=== PATIENT | female | born 1985 | race Caucasian/White ===

== ENCOUNTER 2018-07-27 18:58 | Observation (INO) ==
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
[2018-07-27 19:47] LABS: Bilirubin,Urine Small (Negative); Blood,Urine Trace (Negative); Clarity,Urine Cloudy (Clear); Color,Urine Dark Yellow (Yellow); Glucose,Urine (UA) Normal (Normal); Ketones,Urine 80 mg/dL (Negative); Leukocyte Esterase,Urine Negative (Negative); Nitrite,Urine Negative (Negative); Protein,Urine 30 mg/dL (Neg-Trace); Urobilinogen,Urine Normal (Normal)
[2018-07-27 19:49] LABS: Bacteria,Urine Few per hpf (None-Few); Squamous Epithelial Cell,Urine Many per lpf (None-Few)
[2018-07-27 20:05] LABS: Amphetamine Screen,Urine Negative ng/mL (Cutoff=1000); Barbiturate Screen,Urine Negative ng/mL (Cutoff=200); Benzodiazepines Screen,Urine Positive ng/mL (Cutoff=200); Cannabinoid Screen,Urine Positive ng/mL (Cutoff = 50); Cocaine Screen,Urine Negative ng/mL (Cutoff= 300); Opiate Screen,Urine Negative ng/mL (Cutoff=300); Phencyclidine Screen,Urine Negative ng/mL (Cutoff=25)
[2018-07-27 20:09] LABS: Hyaline Casts,Urine None Seen per lpf (None-Few); Mucus,Urine Moderate (Few)
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
[2018-07-27 20:17] LABS: Basophils # 0.1 K/mcL (0.0-0.2); Basophils % 0.8 %; Eosinophils # 0.3 K/mcL (0.0-0.6); Eosinophils % 2.7 %; Hematocrit 42.1 % (35.3-44.9); Hemoglobin 14.6 g/dL (11.5-15.4); Immature Granulocytes % 0.2 % (0-4); Lymphocytes % 29.8 %; Mean Corpuscular HGB Conc 34.7 g/dL (31.6-35.5); Mean Platelet Volume 9.9 fL (9.4-12.4); Monocytes # 0.7 K/mcL (0.0-1.3); Monocytes % 7.1 %; Platelet Count 221 K/mcL (140-400); Red Blood Count 4.43 M/mcL (3.82-4.97); Red Cell Distribution Width 12.9 % (11.5-14.5); Segmented Neutrophils % 59.4 %
[2018-07-27 20:34] LABS: Acetaminophen < 10 mcg/mL (10-20); BUN/Creatinine Ratio 18 (6-26); Blood Urea Nitrogen 14 mg/dL (6-20); Calcium 9.8 mg/dL (8.6-10.3); Carbon Dioxide 27 mEq/L (23-29); Chloride 104 mEq/L (98-107); Ethanol < 10 mg/dL (Less than 10); Glucose 81 mg/dL (70-105); Osmolality,Calculated 290 (280-300); Potassium 3.4 mEq/L (3.5-5.1); Salicylate < 2.5 mg/dL (15.0-30.0); Sodium 140 mEq/L (136-145); eGFR For Non-African Americans > 60 (> 60)
[2018-07-27] MEDS ORDERED: 0.9 % Sodium Chloride 1,000 ML IVC ONE (22:09)
[2018-07-27 22:34] LABS: Alanine Aminotransferase 11 Units/L (7-52); Albumin 4.4 g/dL (3.5-5.7); Albumin/Globulin Ratio 1.6 (1.1-2.2); Alkaline Phosphatase 63 Units/L (34-104); Aspartate Amino Transferase 18 Units/L (13-39); Bilirubin,Direct 0.1 mg/dL (0.0-0.2); Bilirubin,Indirect 0.5 mg/dL (0.0-1.2); Bilirubin,Total 0.6 mg/dL (0.3-1.0); Globulin 2.8 g/dL (2.4-3.5); Lipase 11 Units/L (11-82); Total Protein 7.2 g/dL (6.4-8.9)
[2018-07-28] MEDS ORDERED: Naloxone 0.4 MG/ML INJ IVP PRN (00:42)
[2018-07-28] MEDS ORDERED: Acetaminophen 325 MG TABLET PO PRN (00:42)
[2018-07-28] MEDS: D5% in 0.9% NACL w KCl 20 MEQ/1,000 ML MLS IVC SCH ×2 (01:35→17:14)
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
[2018-07-28 05:14] LABS: Basophils # 0.1 K/mcL (0.0-0.2); Basophils % 1.2 %; Eosinophils # 0.3 K/mcL (0.0-0.6); Eosinophils % 3.7 %; Hematocrit 39.2 % (35.3-44.9); Immature Granulocytes % 0.2 % (0-4); Lymphocytes # 2.5 K/mcL (0.6-4.6); Lymphocytes % 30.7 %; Mean Corpuscular HGB Conc 33.2 g/dL (31.6-35.5); Mean Corpuscular Hemoglobin 32.3 pg (28.0-33.3); Mean Corpuscular Volume 97.3 fL (83.0-100.0); Mean Platelet Volume 10.2 fL (9.4-12.4); Monocytes # 0.5 K/mcL (0.0-1.3); Monocytes % 5.8 %; Neutrophils # 4.8 K/mcL (1.6-8.9); Platelet Count 205 K/mcL (140-400); Red Blood Count 4.03 M/mcL (3.82-4.97); Red Cell Distribution Width 12.9 % (11.5-14.5); Segmented Neutrophils % 58.4 %
[2018-07-28 05:32] LABS: Alanine Aminotransferase 9 Units/L (7-52); Albumin 3.8 g/dL (3.5-5.7); Albumin/Globulin Ratio 1.6 (1.1-2.2); Alkaline Phosphatase 53 Units/L (34-104); Aspartate Amino Transferase 15 Units/L (13-39); BUN/Creatinine Ratio 18 (6-26); Bilirubin,Total 0.5 mg/dL (0.3-1.0); Blood Urea Nitrogen 12 mg/dL (6-20); Calcium 8.5 mg/dL (8.6-10.3); Carbon Dioxide 27 mEq/L (23-29); Chloride 106 mEq/L (98-107); Globulin 2.4 g/dL (2.4-3.5); Glucose 109 mg/dL (70-105); Magnesium 1.9 mg/dL (1.6-2.6); Osmolality,Calculated 286 (280-300); Potassium 3.8 mEq/L (3.5-5.1); Sodium 138 mEq/L (136-145); Total Protein 6.2 g/dL (6.4-8.9); eGFR For Non-African Americans > 60 (> 60)
--- NOTE | 2018-07-28 08:40 | Discharge Summary ---
Date of Encounter: 07/28/18 Time of Encounter: 08:35 - Discharge Diagnosis (1) Hallucinations Priority: Primary Status: Acute (2) Depression Priority: Secondary Status: Acute Qualifiers: Depression Type: reactive depression Qualified Code(s): F32.9 - Major depressive disorder, single episode, unspecified (3) DVT prophylaxis Priority: Secondary Status: Acute Hospital course: Ms. Nevarez is a 33 year old female past medical history significant for substance abuse, and depression. Patient was brought to the hospital due to visual hallucination and severe depression with flat affect and anhedonia. Psychiatry consulted and recommended medical management due to the suspicious of subutex and benzodiazepine withdrawal. Patient with no clinical signs and symptoms of subutex or Benzos withdrawals. Patient is clinically is stable to be transferred to the psych unit. Continue plan of care as per psychiatry recommendations. - Time Spent with Patient Total time spent providing and/or coordinating discharge services: Less than 30 minutes - Discharge Medications Home Medications: Suboxone 8 mg-2 mg Sl Film 07/27/18 [History] Allergies/Adverse Reactions: Allergy/AdvReac Type Severity Reaction Status Date / Time Penicillins Allergy Hives Verified 05/01/17 22:58 Date of admission: 07/27/18 22:46 Primary care physician: PCP NONE Consults: 07/28/18 00:42 Consult to Psychiatry [CONS] Routine Consulting Provider: Psychiatry Rachel Reason consult: Altered mental status Other reason and/or additional details: 1A admission? [place] Slip initiated date and time: pink slipped in ER Call Completed: No - Constitutional Vitals: Temp Pulse Resp BP Pulse Ox 98.1 F 68 12 103/69 97 07/28/18 06:06 07/28/18 06:06 07/28/18 06:06 07/28/18 06:06 07/28/18 06:06 General appearance: Present: disheveled, A&O X 2. Absent: cooperative, answers questions appropriately Exam: General: Alert. Patient is not engaging into conversations. In no apparent visual distress. No tremors, no diaphoresis. Skin: Normal color, no rash, no lesions. HEENT: EOM, pupils equal, round and reactive. Cardiovascular: Normal S1 & S2, no rubs, murmurs or gallops. No JVD. Pulse regular. Lungs: Clear breath sounds, no wheezes or crackles. Abdomen: Soft, non-tender, no rigidity. Extremities: No deformity, no edema or tenderness, no joint swelling or clubbing. Neurological: Flat affect Rest of the physical exam is non contributory - Patient Status Disposition: Transfer Psychiatric Hosp Condition: Good Functional capacity at discharge: independent ambulation Overall status at discharge: patient is not back to baseline - Discharge Instructions Follow Up With: NONE,PCP [Primary Care Provider] - - Diet and Activity Activity: resume usual activities as tolerated Diet: advance to your usual diet
--- NOTE | 2018-07-28 19:47 | Consult Note ---
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 Nevarez is a 33 year old female the patient is a poor historian. She has been evaluated in the emergency room. She reports hallucinations and delusions. Chief complaints are used meth about 10 days ago. History of present illness: . This patient was admice last night. Subutex and was felt to be showing some toxicity associated with the use of this or other medicines. The combination of Subutex or buprenorphine with benzodiazepines can be problematic and associated with respiratory suppression and . The patient is a difficult historian and additional data was obtained from the patient's mother and father. The patient was in her usual state of health and mood and had been on Subutex 8 twice a day until the last 3 weeks. At that time she had stopped it and had gone off. And started to use other drugs. Does not clear all that she uses can she cannot provide me with this. She had been on Subutex since 2014. She has a four-week supply that was given in July. The patient's mother told me that the patient was last seen to be doing well 07/11/2018 but a more recent visit showed that the patient was hallucinating violent towards her 14-year-old daughter not taking care of kids are daily activities she had lost a significant amount of weight perhaps 20 or 30 pounds in the last 3 weeks. The patient's mother intercepted her phone and could not identify medicines but knew that the patient had gone to a family doctor to get gabapentin in addition the other medicines that she was on. There is enough history to suggest the patient has been exposed to methamphetamine by her own report and this additional evidence. The patient is confused on the interview she reports hearing voices she believes things that are not true she confabulated when given some information she was able to name some things but could not calculate or perform other functions she had a flat expression with a latency of speech. Some point she did not answered all she did not show any significant catatonic signs other than immobility , sparse speech and posturing. CC: Sushil Brasher MD Past Med Surg Social Fam HX - Past Medical History Medical history: SVT - Past Psychiatric History Psychiatric history: Reports: other Family psychiatric history: Yes Family History of Suicide: Unknown - Past Surgical History Surgical History: appendectomy, cholecystectomy - Social History Smoking Status: Former smoker Smokeless Tobacco Status: No Alcohol use: none Drug use: none Occupational status: other Current living situation: Home, With Family Activity Level: Independent ambulation Recent Out of Country Travel Within the Last 8 Weeks: No Exposure or Possible Exposure to Illness During Travel: No - Family History Mother History Unknown: Yes Father History Unknown: Yes Medications & Allergies Buprenorphine HCl [Subutex] 8 mg SL TID 07/28/18 [History] Allergy/AdvReac Type Severity Reaction Status Date / Time Penicillins Allergy Hives Verified 07/28/18 13:27 Review of Systems Psychiatric: Reports: anxiety, suicidal ideation, auditory hallucinations, difficulty concentrating Psychiatry Exam - Constitutional Vitals: Temp Pulse Resp BP Pulse Ox 98.6 F 74 12 113/74 99 07/28/18 10:00 07/28/18 10:00 07/28/18 10:00 07/28/18 10:00 07/28/18 10:00 General appearance: age & developmentally appropriate, well-groomed, well- nourished - Musculoskeletal Gait: slow Station: relaxed, posturing Strength & Tone: mild weakness - Psychiatric Patient Orientation: Yes Person, Yes Time, Yes Place, Yes Other Level of alertness: Alert Behavior: withdrawn Psychomotor activity: Slowed Eye Contact: Intense Contact Mood Description: Other Affect description: congruent with mood, flat Speech Volume: Soft/Quiet Speech pattern: normal rate, normal rhythm, normal tone, impoverished Language & Vocabulary: consistent with education Thought Process: Linear, Goal Oriented, Thought Blocking, Confabulation Thought Content: No Suicidal ideation, No Homicidal ideation, No Overt delusions Perceptual Disturbances: No Auditory hallucinations, No Visual hallucinations Attention Span Ability: Capable of Focused Attention, Unable to Focus Memory Description: Immediate Impaired, Recent Impaired, Remote Impaired Patient Reliability: Not Reliable Historian Fund of knowledge: Yes abstraction ability, Yes below average Intelligence Estimate: Average Judgment: Poor Insight: None Results - Drug Levels and Toxicology Drug Levels and Toxicology: Drug Levels and Toxicity 07/27/18 07/27/18 19:30 20:05 Urine Opiates Screen Negative Acetaminophen < 10 L Ur Barbiturates Screen Negative Ur Phencyclidine Scrn Negative Ur Amphetamines Screen Negative U Benzodiazepines Scrn Positive H Urine Cocaine Screen Negative U Marijuana (THC) Screen Positive H Ethyl Alcohol < 10 - Labs Labs: Laboratory Last Values WBC 8.1 K/mcL (4.3-11.1) 07/28/18 04:42 RBC 4.03 M/mcL (3.82-4.97) 07/28/18 04:42 Hgb 13.0 g/dL (11.5-15.4) D 07/28/18 04:42 Hct 39.2 % (35.3-44.9) 07/28/18 04:42 MCV 97.3 fL (83.0-100.0) 07/28/18 04:42 MCH 32.3 pg (28.0-33.3) 07/28/18 04:42 MCHC 33.2 g/dL (31.6-35.5) 07/28/18 04:42 RDW 12.9 % (11.5-14.5) 07/28/18 04:42 Plt Count 205 K/mcL (140-400) 07/28/18 04:42 MPV 10.2 fL (9.4-12.4) 07/28/18 04:42 Immature Gran % 0.2 % (0-4) 07/28/18 04:42 Seg Neutrophils % 58.4 % 07/28/18 04:42 Lymphocytes % 30.7 % 07/28/18 04:42 Monocytes % 5.8 % 07/28/18 04:42 Eosinophils % 3.7 % 07/28/18 04:42 Basophils % 1.2 % 07/28/18 04:42 Neutrophils # 4.8 K/mcL (1.6-8.9) 07/28/18 04:42 Lymphocytes # 2.5 K/mcL (0.6-4.6) 07/28/18 04:42 Monocytes # 0.5 K/mcL (0.0-1.3) 07/28/18 04:42 Eosinophils # 0.3 K/mcL (0.0-0.6) 07/28/18 04:42 Basophils # 0.1 K/mcL (0.0-0.2) 07/28/18 04:42 Sodium 138 mEq/L (136-145) 07/28/18 04:42 Potassium 3.8 mEq/L (3.5-5.1) 07/28/18 04:42 Chloride 106 mEq/L (98-107) 07/28/18 04:42 Carbon Dioxide 27 mEq/L (23-29) 07/28/18 04:42 BUN 12 mg/dL (6-20) 07/28/18 04:42 Creatinine 0.67 mg/dL (0.60-1.20) 07/28/18 04:42 Est GFR ( Amer) > 60 (> 60) 07/28/18 04:42 Est GFR (Non-Af Amer) > 60 (> 60) 07/28/18 04:42 BUN/Creatinine Ratio 18 (6-26) 07/28/18 04:42 Glucose 109 mg/dL (70-105) H 07/28/18 04:42 Calculated Osmolality 286 (280-300) 07/28/18 04:42 Calcium 8.5 mg/dL (8.6-10.3) L 07/28/18 04:42 Magnesium 1.9 mg/dL (1.6-2.6) 07/28/18 04:42 Total Bilirubin 0.5 mg/dL (0.3-1.0) 07/28/18 04:42 Direct Bilirubin 0.1 mg/dL (0.0-0.2) 07/27/18 20:05 Indirect Bilirubin 0.5 mg/dL (0.0-1.2) 07/27/18 20:05 AST 15 Units/L (13-39) 07/28/18 04:42 ALT 9 Units/L (7-52) 07/28/18 04:42 Alkaline Phosphatase 53 Units/L (34-104) 07/28/18 04:42 Serum Total Protein 6.2 g/dL (6.4-8.9) L 07/28/18 04:42 Albumin 3.8 g/dL (3.5-5.7) 07/28/18 04:42 Globulin 2.4 g/dL (2.4-3.5) 07/28/18 04:42 Albumin/Globulin Ratio 1.6 (1.1-2.2) 07/28/18 04:42 Lipase 11 Units/L (11-82) 07/27/18 20:05 Urine Color Dark Yellow (Yellow) 07/27/18 19: Urine Clarity Cloudy (Clear) A 07/27/18: Urine pH 6.0 pH Units (5.0-8.0) 07/27/18: Ur Specific Atkins 1.030 (1.010-1.025) H 07/27/18 Urine Protein 30 mg/dL (Neg-Trace) H 07/27/18 Urine Glucose (UA) Normal mg/dL (Normal) 07/27/18 Urine Ketones 80 mg/dL (Negative) H 07/27/18: Urine Blood Trace (Negative) H 07/27/18: Urine Nitrite Negative (Negative) 07/27/18 Urine Bilirubin Small (Negative) H 07/27/18:30 Urine Urobilinogen Normal mg/dL (Normal) 07/27/18:30 Ur Leukocyte Esterase Negative (Negative) 07/27/18: Urine Microscopic RBC 3-5 per hpf (0-3) H 07/27/1830 Urine Microscopic WBC 5-15 per hpf (0-3) H 07/27/18:30 Ur Squamous Epith Cells Many per lpf (None-Few) H 07/27/18: Urine Bacteria Few per hpf (None-Few) 07/27/18: Hyaline Casts None Seen per lpf (None-Few) 07/27/18:30 Urine Mucus Moderate (Few) H 07/27/18:30 Urine Test Negative (Negative) 07/27/18 Salicylates < 2.5 mg/dL (15.0-30.0) L 07/27/18 20:05 Urine Opiates Screen Negative ng/mL (Xcsntx=219) 07/27/18 19:30 Acetaminophen < 10 mcg/mL (10-20) L 07/27/18 20:05 Ur Barbiturates Screen Negative ng/mL (Zxnoei=718) 07/27/18 19:30 Ur Phencyclidine Scrn Negative ng/mL (Cutoff=25) 07/27/18 19:30 Ur Amphetamines Screen Negative ng/mL (Abmjps=0748) 07/27/18 19:30 U Benzodiazepines Scrn Positive ng/mL ([place]=599) H 07/27/18 19:30 Urine Cocaine Screen Negative ng/mL (Cutoff= 300) 07/27/18 19:30 U Marijuana (THC) Screen Positive ng/mL (Cutoff = 50) H 07/27/18 19:30 Ur Drug Screen Interp See Below 07/27/18 19:30 Ethyl Alcohol < 10 mg/dL (Less than 10) 07/27/18 20:05 - Impressions Impressions Head CT 07/27/18 21:58 IMPRESSION: No acute intracranial abnormality. D/ / Augustus Horner MD / Augustus Horner MD Interpreting Provider: Aguustus Horner MD Consult Discharge Plan - Plan Referrals: NONE,PCP [Primary Care Provider] -
[2018-07-29] MEDS: D5% in 0.9% NACL w KCl 20 MEQ/1,000 ML MLS IVC SCH (06:02)
--- NOTE | 2018-07-29 11:51 | Event Note ---
Date of Encounter: 07/29/18 Time of Encounter: 11:51 Pt is to be discharged to 1A. She is medically stable at this time. Exam Alert. Comfortable Mucus membranes dry Heart reg No wheeze abd soft No edema Moves all extremities I/P Psychosis - to 1A today. Opiod dependence
[2018-07-29 13:30] VITALS: BP 118/69
--- NOTE | 2018-08-01 19:03 | Electrocardiograph Report ---
[address] [place], [place] [address] Test Date: 2018-07-28 Pat Name: Gauri Nevarez Department: 113 Room: 3B63 Gender: F Back Grinder: : 1985 Requested By: Sushil Brasher Order Number: [id number] Reading MD: Tatiana White Measurements Intervals [place] Rate: 66 P: -85 ME: 111 QRS: 85 QRSD: 86 T: 73 QT: 436 QTc: 449 Interpretive Statements ECTOPIC ATRIAL RHYTHM OR JUNCTIONAL ARRHYTHMIA MODERATE T-WAVE ABNORMALITY, CONSIDER ANTERIOR ISCHEMIA Electronically Signed On 08-01-2018 19:01:37 EDT by Tatiana White
--- NOTE | 2018-08-01 19:04 | Electrocardiograph Report ---
[address] [place], [place] [address] Test Date: 2018-07-28 Pat Name: Gauri Nevarez Department: 113 Room: 3B63 Gender: F Emergency Medical Technician: : 1985 Requested By: Sushil Brasher Order Number: [id number] Reading MD: Tatiana White Measurements Intervals [place] Rate: 59 P: 37 [place]: 117 QRS: 88 QRSD: 90 T: 81 QT: 446 QTc: 446 Interpretive Statements SINUS BRADYCARDIA WITH SHORT [place] INTERVAL MODERATE T-WAVE ABNORMALITY, CONSIDER ANTERIOR ISCHEMIA Electronically Signed On 08-01-2018 19:02:49 EDT by Tatiana White
== END 2018-07-29 13:45 ==
LOC: 3BNU 18:58 → EMEROOARM 18:58 → SUATTDRO 22:46 → 3BNU 23:42
PROVIDERS: ADMIT Pediatrics; ATTEND Internal Medicine

== ENCOUNTER 2018-07-29 13:26 | Inpatient (IN) ==
[2018-07-29] MEDS ORDERED: traZODone 50 MG TABLET PO PRN (13:44)
[2018-07-29] MEDS ORDERED: *HR* LORazepam 2 MG/ML VIAL IM PRN (13:44)
[2018-07-29] MEDS ORDERED: Mag Hydrox/Al Hydrox/Simeth 30 ML UDC PO PRN (13:44)
[2018-07-29] MEDS ORDERED: *HR* LORazepam 1 MG TABLET PO PRN (13:44)
[2018-07-29] MEDS ORDERED: Haloperidol Lactate 5 MG/ML VIAL IM PRN (13:44)
[2018-07-29] MEDS ORDERED: hydrOXYzine pamoate 25 MG CAPSULE PO PRN (13:44)
[2018-07-30] MEDS ORDERED: *HR* LORazepam 2 MG/ML VIAL IM ONE (13:15)
--- NOTE | 2018-07-30 13:21 | Psychiatry History & Physical ---
Date of Encounter: 07/30/18 Time of Encounter: 13:00 History of Present Illness Patient Stated Chief Complaint: minimal speech, not eating Medicare Admission Attestation: For traditional Medicare patients the provided hospital inpatient services are reasonable and necessary and in the case of services not specified as inpatient-only under 42 CFR 419.22 (n), that they are appropriately provided as inpatient services in accordance 42 CFR 412.3. For Critical Access Hospital the patient may reasonably be expected to be discharged or transferred to a hospital within 96 hours after admission to the Critical Access Hospital. Admitted From: Intrahospital Transfer Plans for Post Hospital Care: Home History of Present Illness: Ms. Nevarez is a 33 year old female Chief complaints minimal speech. History of present illness. The patient was previously seen consult. The patient is not able to provide much additional history. The rias referred to the previous hospital stay. To briefly summarize this patient was on Subutex 8 mg twice a day. She had been on this from 2014 through 2017 sometime in the month of July she may have stopped it or sold it in order to take methamphetamine or other medicines. This information was obtained from secondary sources. The patient acknowledges not taking the medicine by nodding her head but is not able to elaborate on some details. Benzodiazepines were found in her urine she admitted to 2 methamphetamine 10 days before. The patient had psychotic symptoms while on the medical floor including hearing voices she confabulated and gave tangential answers sometimes perseverating on answers as well read Head CT was found to be within normal limits The patient is come to one and has eaten poorly in spite of having an sure and encouragement to eat she is not she drinks a small amount and is not dehydrated. The patient did not acknowledge significant trouble with auditory hallucinations today she did not identify delusions of passive bitty but when the patient is seen she stares intently and seems to move her eyes and a left right fashion as if to communicate. At sometime she will be minimally social and other times not goal. The reader is deferred to the previous documents for the past medical history social history and psychiatric history. On the examination the patient has mutism negativism flaccid telephone and unusual cognitive cogwheel rigidity waxy flexibility positive magnetism sign she did not have grasp reflex or other unusual phenomena. Past Med Surg Social Fam HX - Past Medical History Source: patient Medical history: SVT - Past Psychiatric History Psychiatric history: Reports: other Family psychiatric history: Yes Family History of Suicide: Unknown - Past Surgical History Surgical History: appendectomy, cholecystectomy - Social History Smoking Status: Former smoker Smokeless Tobacco Status: No Alcohol use: none Drug use: none Occupational status: unemployed Current living situation: Home - Independent Activity Level: Independent ambulation Recent Out of Country Travel Within the Last 8 Weeks: No Exposure or Possible Exposure to Illness During Travel: No - Family History Mother Adopted: [place]: Katie francois Family Member Ethnicity: Non- Living Status: Still Living Hx Family Cardiac Disorders: No Hx Family Respiratory Disorders: Yes (asthma) Hx Family Cancer: No Hx Family GI Disorders: No Hx Family Genitourinary Disorders: No Hx Family Endocrine Disorder: No Hx Family Musculoskeletal Disorders: No Hx Family Neuromuscular Disorders: No Hx Family Neurologic Disorders: No Hx Family HEENT Disorders: No Hx Family Autoimmune Disorders: No Hx Family Reproductive Disorders: No Hx Family Psychosocial Disorders: No Hx Family Medical Disorders: No Medications & Allergies Buprenorphine HCl [Subutex] 8 mg SL TID 07/28/18 [History] Allergy/AdvReac Type Severity Reaction Status Date / Time Penicillins Allergy Hives Verified 07/28/18 13:27 Review of Systems Constitutional: Reports: weight change Eyes: Denies: eye pain, vision change Ears, Nose, Throat: Denies: ear pain, throat pain, dental pain, hearing loss, congestion Cardiovascular: Denies: chest pain, palpitations, dyspnea on exertion Gastrointestinal: Reports: other Neurological: Reports: confusion, memory loss Psychiatric: Reports: auditory hallucinations, anhedonia Endocrine: Reports: fatigue Exam - HEENT Head exam IM: Present: atraumatic Eye exam IM: Present: EOMI, normal appearance, PERRL ENT exam IM: Present: normal exam - Neurological Neurological exam: Present: CN II-XII intact - Respiratory Respiratory exam IM: Present: CTAB - GI/Abdominal GI/Abdominal exam IM: Present: normal bowel sounds, soft. Absent: tenderness - Extremities Extremities exam IM: Present: full ROM - Skin Skin exam IM: Present: dry, warm - Constitutional Vitals: Temp Pulse Resp BP Pulse Ox 98 F 72 18 118/73 100 07/30/18 09:00 07/30/18 09:00 07/30/18 09:00 07/30/18 09:00 10/25/18 09:00 General appearance: age & developmentally appropriate, well-groomed, well- nourished - Musculoskeletal Gait: slow Station: relaxed Strength & Tone: flaccid, cog wheel - Psychiatric Patient Orientation: Yes Person, Yes Time, Yes Place Level of alertness: Follows commands Behavior: calm, fearful, withdrawn Psychomotor activity: Catatonic Eye Contact: Infrequent Blinking Mood Description: Depressed Affect description: congruent with mood, flat Speech Volume: Normal Speech pattern: normal rate, normal rhythm, normal tone, fluent, spontaneous Language & Vocabulary: consistent with education Thought Process: Linear, Goal Oriented Thought Content: No Suicidal ideation, No Homicidal ideation, No Overt delusions Perceptual Disturbances: Yes Auditory hallucinations, No Visual hallucinations Attention Span Ability: Unable to Focus Memory Description: Grossly Intact Patient Reliability: Not Reliable Historian Fund of knowledge: Yes average, Yes below average Intelligence Estimate: Average Judgment: Poor Insight: None Assessment and Plan (1) Major depressive disorder, single episode, severe with psychotic features Current visit: Yes Status: Acute Plan: Admit inpatient for safety and stabilization, Close observation, Suicide Precautions per unit protocol, Encourage participation in unit milieu, Group Therapy, Monitor sleep, Monitor appetite, Secure weapons Risks, benefits, side effects, alternatives discussed w/pt: Yes Patient agreeable to treatment: Yes Plans for Post Hospital Care: Home Estimated Length of Stay (Days): 7 (2) Catatonic disorder due to known physiological condition Current visit: Yes Status: Acute Plan: Admit inpatient for safety and stabilization, Close observation, Suicide Precautions per unit protocol, Encourage participation in unit milieu, Group Therapy, Monitor sleep, Monitor appetite, Secure weapons, Family/Supportive other meeting Risks, benefits, side effects, alternatives discussed w/pt: Yes Patient agreeable to treatment: Yes Plans for Post Hospital Care: Home (3) 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 Current visit: Yes Status: Acute Plan: Admit inpatient for safety and stabilization, Close observation, Suicide Precautions per unit protocol, Encourage participation in unit milieu, Monitor sleep Risks, benefits, side effects, alternatives discussed w/pt: Yes Patient agreeable to treatment: Yes Plans for Post Hospital Care: Home (4) 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 Current visit: No Status: Acute Plan: Suicide Precautions per unit protocol, Encourage participation in unit milieu, Secure weapons Risks, benefits, side effects, alternatives discussed w/pt: Yes Patient agreeable to treatment: Yes Plans for Post Hospital Care: Home (5) 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 Current visit: No Status: Acute Plan: Admit inpatient for safety and stabilization, Close observation, Suicide Precautions per unit protocol, Secure weapons Risks, benefits, side effects, alternatives discussed w/pt: Yes Patient agreeable to treatment: Yes Plans for Post Hospital Care: Home (6) Sedative, hypnotic or anxiolytic abuse with sedative, 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
[2018-07-30] MEDS: OLANZapine 10 MG TAB.RAPDIS PO SCH ×2 (13:33→21:48)
[2018-07-30] MEDS: *HR* LORazepam 1 MG TABLET PO SCH ×2 (19:07→21:52)
[2018-07-30] MEDS: MOM Conc 10 ML UD.LIQ PO PRN (21:47)
[2018-07-31] MEDS: OLANZapine 10 MG TAB.RAPDIS PO SCH ×2 (10:03→21:31)
[2018-07-31] MEDS: *HR* LORazepam 1 MG TABLET PO SCH ×3 (10:04→21:31)
[2018-07-31] MEDS: MOM Conc 10 ML UD.LIQ PO PRN (15:12)
[2018-07-31] MEDS ORDERED: Nicotine 2 MG GUM BC PRN (15:43)
--- NOTE | 2018-07-31 19:32 | Psychiatry Progress Note ---
Date of Encounter: 07/31/18 Time of Encounter: 15:30 Subjective Interval history: ID: Patient is a 33-year-old white female. Chief complaint: I want to go home, cannot I get a cigarette here History of present illness. The patient had catatonia this included poor nutrition poor eating poor drinking poor self-care. In the time that she has gotten the medicine lorazepam at 1 mg 3 times a day she was able take shower engage in some self-care and some limited conversations today on 2 mg 3 times a day although she has not gotten full dose she came into the office asked about when she would be discharged and had other needs and requests including cigarettes. The patient recognizes that she was trying to get off Subutex she admits to the use of benzodiazepines and possibly benzodiazepine withdrawal catatonia. She is not reporting significant side effects to her medicines she has been on olanzapine however she is only eaten 25% of breakfast and lunch. The patient has had visits with family and their variety of things about social situation she will go home to the are concerning. Review of Systems Psychiatric: Reports: anxiety, anhedonia Results - Vital Signs Vital Signs: Temp Pulse Resp BP Pulse Ox 98.1 F 98 18 115/82 98 07/31/18 09:00 07/31/18 09:00 07/31/18 09:00 07/31/18 09:00 07/31/18 09:00 Assessment and Plan (1) Major depressive disorder, single episode, severe with psychotic features Current visit: Yes Status: Acute Plan: Continue hospitalization, Close observation, Suicide Precautions per unit protocol, Encourage participation in unit milieu Risks, benefits, side effects, alternatives discussed w/pt: Yes Patient agreeable to treatment: Yes (2) Catatonic disorder due to known physiological condition Current visit: Yes Status: Acute Plan: Continue hospitalization, Close observation, Encourage participation in unit milieu, Monitor appetite Risks, benefits, side effects, alternatives discussed w/pt: Yes Patient agreeable to treatment: Yes (3) 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 Current visit: Yes Status: Acute Plan: Continue hospitalization, Close observation, Monitor appetite Risks, benefits, side effects, alternatives discussed w/pt: Yes Patient agreeable to treatment: Yes (4) 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 Current visit: No Status: Acute Plan: Monitor sleep, Monitor appetite Risks, benefits, side effects, alternatives discussed w/pt: Yes Patient agreeable to treatment: Yes (5) 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 Current visit: No Status: Resolved Plan: Close observation Risks, benefits, side effects, alternatives discussed w/pt: Yes Patient agreeable to treatment: Yes (6) Sedative, hypnotic or anxiolytic abuse with sedative, 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 Please arrive 15 minutes early to complete paperwork. You will also see , for mental health counseling services, on in the same office on. Please bring your insurance card, photo ID and medications in their original bottles. If you do not have insurance, bring proof of income to apply for the sliding fee scale. If you are unable to keep this appointment, 24 hour business notice of cancellation is expected. The above appointment(s) reflects first availability. You may contact the office regularly to check for cancellations that may allow you to be seen sooner.) [facility] [Outside] - 08/04/18 2:00 pm (The above appointment is with Callum Walls for outpatient mental health and substance abuse assessment and treatment services. Please bring photo ID, insurance card, social security number, proof of address and proof of income. After completing this assessment appointment, you will be scheduled to see the psychiatrist.) Psychiatry Exam - Constitutional Vitals: Temp Pulse Resp BP Pulse Ox 98.1 F 98 18 115/82 98 07/31/18 09:00 07/31/18 09:00 07/31/18 09:00 07/31/18 09:00 07/31/18 09:00 General appearance: age & developmentally appropriate, well-groomed, well- nourished - Musculoskeletal Gait: normal Station: relaxed Strength & Tone: normal for patient - Psychiatric Patient Orientation: Yes Person, Yes Time, Yes Place Level of alertness: Alert Behavior: calm, cooperative Psychomotor activity: Slowed Eye Contact: Maintains Eye Contact Mood Description: Depressed Affect description: congruent with mood, full range Speech Volume: Normal Speech pattern: normal rate, normal rhythm, spontaneous, slowed, impoverished, monotone Language & Vocabulary: consistent with education Thought Process: Linear, Goal Oriented, Thought Blocking, Perseveration, Slowed Thinking Thought Content: No Suicidal ideation, No Homicidal ideation, No Overt delusions Perceptual Disturbances: No Auditory hallucinations, No Visual hallucinations Attention Span Ability: Capable of Focused Attention, Unable to Sustain Attention Memory Description: Grossly Intact Patient Reliability: Reliable Historian Fund of knowledge: Yes abstraction ability, Yes aware of current events Intelligence Estimate: Average Judgment: Limited Insight: Minimal
[2018-07-31] MEDS: Nicotine 21 MG PATCH.TD24 TD SCH (21:37)
[2018-08-01] MEDS: *HR* LORazepam 1 MG TABLET PO SCH ×3 (10:12→21:21)
[2018-08-01] MEDS: OLANZapine 10 MG TAB.RAPDIS PO SCH ×2 (10:12→21:20)
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
[2018-08-01] MEDS: Nicotine 21 MG PATCH.TD24 TD SCH (13:38)
[2018-08-02] MEDS: Nicotine 21 MG PATCH.TD24 TD SCH (09:14)
[2018-08-02] MEDS: *HR* LORazepam 1 MG TABLET PO SCH ×3 (09:14→20:53)
[2018-08-02] MEDS: OLANZapine 10 MG TAB.RAPDIS PO SCH ×2 (09:14→20:54)
--- NOTE | 2018-08-02 11:48 | Psychiatry Progress Note ---
Date of Encounter: 08/02/18 Time of Encounter: 11:43 Subjective Interval history: Client showing some improvements but also still having symptoms. She is out of her room more. Interacting with other females on the unit. Making needs known. Able to talk more about her confusion. However, she is still not stable. Still experiencing catatonia. Thoughts and movements are slow. Prolonged stare. Nervous about taking the Ativan since it has the potential to be addictive but willing to provided it is only for a short period of time. Spent an hour in the shower this morning. Turned water on and off. According to staff she was half naked when she came out. Thought male nurse on the unit was her yesterday. Today she told him she wanted to leave with him. When asked about it by this policy writer typist she seemed embarrassed and still confused. Denied thinking he was her when speaking with this policy writer typist but was not convincing in her answer. Not yet ready for discharge. Review of Systems Constitutional: Denies: fever, chills, weakness, weight change Eyes: Denies: eye pain, vision change Ears, Nose, Throat: Denies: ear pain, throat pain, dental pain, hearing loss, congestion Cardiovascular: Denies: chest pain, palpitations, dyspnea on exertion Respiratory: Denies: cough, dyspnea, wheezes Gastrointestinal: Denies: abdominal pain, nausea, vomiting, diarrhea, constipation Musculoskeletal: Denies: joint swelling, joint pain Neurological: Denies: headache, weakness, numbness, memory loss Psychiatric: Reports: anxiety, anhedonia Results - Vital Signs Vital Signs: Temp Pulse Resp BP Pulse Ox 97.7 F 77 16 104/72 97 08/02/18 09:00 08/02/18 09:00 08/02/18 09:00 08/02/18 09:00 08/02/18 09:00 Assessment and Plan (1) Major depressive disorder, single episode, severe with psychotic features Current visit: Yes Status: Acute Plan: Continue hospitalization, Close observation, Suicide Precautions per unit protocol, Encourage participation in unit milieu, Group Therapy, Monitor sleep, Monitor appetite Risks, benefits, side effects, alternatives discussed w/pt: Yes Patient agreeable to treatment: Yes (2) Catatonic disorder due to known physiological condition Current visit: Yes Status: Acute Plan: Continue hospitalization, Close observation, Suicide Precautions per unit protocol, Encourage participation in unit milieu, Group Therapy, Monitor sleep, Monitor appetite Risks, benefits, side effects, alternatives discussed w/pt: Yes Patient agreeable to treatment: Yes (3) 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 Please arrive 15 minutes early to complete paperwork. Please bring your insurance card, photo ID and medications in their original bottles. If you are unable to keep this appointment, 24 hour business notice of cancellation is expected. The above appointment(s) reflects first availability. You may contact the office regularly to check for cancellations that may allow you to be seen sooner.) [facility] [Outside] - 08/04/18 2:00 pm (The above appointment is with Callum Walls for outpatient mental health and substance abuse assessment and treatment services. Please bring photo ID, insurance card, social security number, proof of address and proof of income. After completing this assessment appointment, you will be scheduled to see the psychiatrist.) Psychiatry Exam - Constitutional Vitals: Temp Pulse Resp BP Pulse Ox 97.7 F 77 16 104/72 97 08/02/18 09:00 08/02/18 09:00 08/02/18 09:00 08/02/18 09:00 08/02/18 09:00 General appearance: thin - Musculoskeletal Gait: slow Station: relaxed Strength & Tone: normal for patient - Psychiatric Patient Orientation: Yes Person, Yes Time, Yes Place Level of alertness: Alert Behavior: calm, cooperative Psychomotor activity: Slowed Eye Contact: Prolonged Contact Mood Description: Depressed Affect description: congruent with mood Speech Volume: Soft/Quiet Speech pattern: limited Language & Vocabulary: consistent with education Thought Process: Thought Blocking Thought Content: No Suicidal ideation, No Homicidal ideation, Yes Overt delusions Perceptual Disturbances: No Auditory hallucinations, No Visual hallucinations Attention Span Ability: Capable of Focused Attention Memory Description: Immediate Intact, Recent Impaired, Remote Intact Patient Reliability: Questionable Historian Fund of knowledge: Yes abstraction ability, Yes aware of current events Intelligence Estimate: Average Judgment: Fair Insight: Partial
[2018-08-03] MEDS: *HR* LORazepam 1 MG TABLET PO SCH ×3 (09:07→20:54)
[2018-08-03] MEDS: OLANZapine 10 MG TAB.RAPDIS PO SCH ×2 (09:07→20:54)
[2018-08-03] MEDS: Nicotine 21 MG PATCH.TD24 TD SCH (09:09)
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
[2018-08-04] MEDS: *HR* LORazepam 1 MG TABLET PO SCH ×4 (09:14→21:51)
[2018-08-04] MEDS: Nicotine 21 MG PATCH.TD24 TD SCH (09:14)
[2018-08-04] MEDS: OLANZapine 10 MG TAB.RAPDIS PO SCH ×2 (09:14→21:51)
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
[2018-08-05] MEDS: *HR* LORazepam 1 MG TABLET PO SCH ×3 (09:07→20:42)
[2018-08-05] MEDS: OLANZapine 10 MG TAB.RAPDIS PO SCH ×2 (09:44→20:42)
[2018-08-05] MEDS: Nicotine 21 MG PATCH.TD24 TD SCH (09:44)
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
[2018-08-06] MEDS: OLANZapine 10 MG TAB.RAPDIS PO SCH ×2 (10:49→20:46)
[2018-08-06] MEDS: *HR* LORazepam 1 MG TABLET PO SCH ×3 (10:49→20:46)
[2018-08-06] MEDS: Nicotine 21 MG PATCH.TD24 TD SCH ×2 (10:51→21:13)
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
[2018-08-06] MEDS: Ibuprofen 400 MG TABLET PO PRN (18:41)
[2018-08-06] MEDS: MOM Conc 10 ML UD.LIQ PO PRN (23:25)
[2018-08-07] MEDS: OLANZapine 10 MG TAB.RAPDIS PO SCH (09:07)
[2018-08-07] MEDS: Nicotine 21 MG PATCH.TD24 TD SCH (09:07)
[2018-08-07] MEDS: *HR* LORazepam 1 MG TABLET PO SCH ×2 (09:07→14:50)
[2018-08-07 10:16] VITALS: BP 94/69
--- NOTE | 2018-08-07 10:44 | Discharge Summary ---
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 Status: Acute Medications - Discharge Medications Prescriptions: Benztropine [Cogentin] 1 mg PO BID PRN 30 Days #60 tablet PRN Reason: Extrapyramidal Effects Buprenorphine HCl [Subutex] 8 mg SL TID 1 Days #1 tab.subl hydrOXYzine pamoate [HydrOXYzine Pamoate] 25 mg PO TID PRN 30 Days #90 capsule PRN Reason: Anxiety LORazepam [Ativan] 2 mg PO TID 30 Days #90 tablet OLANZapine [Zyprexa Zydis] 10 mg PO BID 30 Days #60 tab.rapdis traZODone [TraZODone] 50 mg PO HS PRN 30 Days #30 tablet PRN Reason: Insomnia Benztropine [Cogentin] 1 mg PO BID PRN 30 Days #60 tablet 08/07/18 [Rx] Buprenorphine HCl [Subutex] 8 mg SL TID 1 Days #1 tab.subl 08/07/18 [Rx] LORazepam [Ativan] 2 mg PO TID 30 Days #90 tablet 08/07/18 [Rx] OLANZapine [Zyprexa Zydis] 10 mg PO BID 30 Days #60 tab.rapdis 08/07/18 [Rx] hydrOXYzine pamoate [HydrOXYzine Pamoate] 25 mg PO TID PRN 30 Days #90 capsule 08/07/18 [Rx] traZODone [TraZODone] 50 mg PO HS PRN 30 Days #30 tablet 08/07/18 [Rx] Allergy/AdvReac Type Severity Reaction Status Date / Time Penicillins Allergy Hives Verified 07/28/18 13:27 Provider Date of admission: 07/29/18 13:26 Primary care physician: PCP NONE Discharging clinician: Joaquín Charles Psychiatry Exam - Constitutional Vitals: Temp Pulse Resp BP Pulse Ox 98.7 F 109 18 94/69 97 08/07/18 09:00 08/07/18 09:00 08/07/18 09:00 08/07/18 09:00 08/07/18 09:00 General appearance: age & developmentally appropriate, well-groomed, well- nourished - Musculoskeletal Gait: normal Station: relaxed Strength & Tone: normal for patient - Psychiatric Patient Orientation: Yes Person, Yes Time, Yes Place Level of alertness: Alert Behavior: calm, cooperative Psychomotor activity: Normal Eye Contact: Maintains Eye Contact Mood Description: Euthymic/stable Affect description: congruent with mood, full range Speech Volume: Normal Speech pattern: normal rate, normal rhythm, normal tone, fluent, spontaneous Language & Vocabulary: consistent with education Thought Process: Linear, Goal Oriented Thought Content: No Suicidal ideation, No Homicidal ideation, No Overt delusions Perceptual Disturbances: No Auditory hallucinations, No Visual hallucinations Attention Span Ability: Capable of Focused Attention Memory Description: Grossly Intact Patient Reliability: Reliable Historian Fund of knowledge: Yes abstraction ability, Yes aware of current events Intelligence Estimate: Average Judgment: Limited Insight: Partial Hospital Course Hospital course: Pt is a 33 yo, , female, who presents for mood, anxiety and catatonia. Pt continues to displayed significant improvement today. Pt occasionally displays catatonic features when nonmed compliant, however once agrees to medications symptoms resolve.. Pt denied any side effects to current medications. Pt noted she felt safe and comfortable on the unit and for discharge home. Pt was in agreement with treatment plan. Pt noted that she is doing really good today. Pt noted she slept 8 hours last night. Pt noted her appetite is okay. Pt rated her depression a 0, on a scale of zero to ten with ten being the worst and zero being none. Pt rate her anxiety a 0, on the same scale. Pt denied any current auditory or visual hallucinations. PT noted occasional auditory hallucinations of whispers. Pt denied any thoughts to harm herself or anyone else. Patient noted a significant reeducation in her catatonia, depression and anxiety during her stay at [place]. Pt noted that she slowly improved to the point that she was comfortable and safe to D/C home. Pt noted she felt her medications were working well and denied any current side effects. Treatment team encouraged Pt to stay out of bed and try to find activities to do, verbalized understanding. pt reported that she felt safe on the unit and comfortable for D/C home. Pt Denied suicidal/homicidal ideations, denied any problems or concerns with medications or side effects. PT voiced progression towards treatment goals and was offered a copy of updated treatment plan completed during visit today. Denied any immediate needs or concerns. Pt denied any access to guns or weapons Pt throughout her stay on in psych pt felt like her medications were working and felt comfortable being discharged on these medications. Pt was advised to take all medications as prescribed, follow up with all scheduled appointments and abstain from any alcohol or illicit substances. Pt was in agreement. Pt felt safe and comfortable to be discharged to her home and follow up with out mental health. Pt was very optimistic about her D/C. Pt felt safe and comfor table for D/C. Pt stated that she was doing "good," today. Pt stated that she slept "about 8 hours," last night. Pt stated that her appetite is "good." Pt stated that she rates her depression a "0," on a scale of 0-10 with 10 being the worst and 0 being none. Pt stated that she rates her anxiety an "0/10," on the same scale. Pt denies any auditory or visual hallucinations. Pt denied any thoughts to harm herself or anyone else. Pt felt safe and comfortable for D/C. The patient was educated primarily by verbal means about her diagnoses and their manifestations in her life. The option for treatment including group individual therapy programming was offered to her and the use of medications with all their potential risks, benefits, and side-effects were discussed with the pt at length. Pt was given the opportunity to ask questions and she participated in the treatment and planning process. Pt felt ready and eager to be discharged from the from the 1A unit to be dishcarged home. Pt felt she was safe for this disposition. Pt was considered to be able to participate in informed consent and decision-making with respect to medical, legal and financial issues at the time of her discharge from the Center. 1.Interval hx 2.Continue current medications 3.Review current labs 4.Pt had an opportunity to ask questions and discuss current treatment plan. 5.Supportive therapy was provided 6.Pt encouraged to consider group or individual therapy 7.Pt was in agreement with treatment plan. 8.Pt was educated on the risks benefits and side effects of current medications. 9. take all medications as prescribed 10 abstain from any alcohol or illict substances. 11. follow up with all sheduled appointments. 12. D/C Pt home 13. PT agreed to continue lorazeapam to 2mg PO TID for Catatonia. Time spent discussing smoking cessation with patient: 3 to 10 minutes Does patient wish to continue nicotine replacement upon disc: No - Time Spent with Patient Total time spent providing and/or coordinating discharge services: Greater than 30 minutes Assessment and Plan - Patient/Caregiver Discharge Instructions Activity: resume usual activities as tolerated Diet: regular diet Additional Instructions: Coordinate for discharge home with - Follow up Plan Follow up with: [facility] [Outside] - 08/18/18 1:30 pm (The above appointment is with Arlette Roman for primary health care and medication management services. Please arrive 15 minutes early to complete paperwork. Please bring your insurance card, photo ID and medications in their original bottles. If you are unable to keep this appointment, 24 hour business notice of cancellation is expected. The above appointment(s) reflects first availability. You may contact the office regularly to check for cancellations that may allow you to be seen sooner.) [facility] [Outside] - 08/11/18 2:00 pm (The above appointment is with Callum Walls for outpatient mental health and substance abuse assessment and treatment services. Please bring photo ID, insurance card, social security number, proof of address and proof of income. After completing this assessment appointment, you will be scheduled to see the psychiatrist.) Overall status at discharge: patient is back to baseline Disposition: Home, Self-Care Quality - Multiple Antipsychotics Patient discharged on 2 or more antipsychotic medications: No - Justification Documentation of: Other justification (pt discharged on one antipsychotic) Procedures - Procedures Procedures: Medication Management, Crisis Stabilization, Supportive Therapy, Group Therapy, Psychoeducational Therapy
[2018-08-07] MEDS: Ibuprofen 400 MG TABLET PO PRN (12:28)
== END 2018-08-07 19:25 | disposition home or self-care (01) | DRG 757 ==
LOC: 1ANU 13:26
PROVIDERS: ADMIT Psychiatry & Neurology Forensic Psychiatry; ATTEND Psychiatry & Neurology Forensic Psychiatry

== ENCOUNTER 2019-08-23 00:41 | Inpatient (IN) ==
[2019-08-23] MEDS ORDERED: Famotidine 20 MG/2 ML VIAL IVP PRN (00:45)
[2019-08-23] MEDS ORDERED: Metoclopramide 10 MG/2 ML VIAL IVP PRN (00:45)
[2019-08-23] MEDS ORDERED: Ondansetron 4 MG/2 ML VIAL IVP PRN (00:45)
[2019-08-23] MEDS ORDERED: Lidocaine 1% 20 ML MDV ID PRN (00:45)
[2019-08-23] MEDS ORDERED: Naloxone 0.4 MG/ML INJ IVP PRN (00:45)
[2019-08-23] MEDS ORDERED: Ringers Solution, Lactated 1,000 ML IVC SCH (00:45)
[2019-08-23] MEDS ORDERED: Ringers Solution, Lactated 1,000 ML ONE (00:49)
[2019-08-23 01:04] LABS: Basophils # 0.1 K/mcL (0.0-0.2); Basophils % 0.3 %; Eosinophils # 0.6 K/mcL (0.0-0.6); Eosinophils % 2.7 %; Hematocrit 33.1 % (35.3-44.9); Hemoglobin 11.6 g/dL (11.5-15.4); Immature Granulocytes % 0.8 % (0-4); Lymphocytes # 3.4 K/mcL (0.6-4.6); Lymphocytes % 16.3 %; Mean Corpuscular Hemoglobin 34.7 pg (28.0-33.3); Mean Corpuscular Volume 99.1 fL (83.0-100.0); Mean Platelet Volume 10.3 fL (9.4-12.4); Monocytes # 1.2 K/mcL (0.0-1.3); Monocytes % 5.8 %; Neutrophils # 15.4 K/mcL (1.6-8.9); Platelet Count 412 K/mcL (140-400); Red Blood Count 3.34 M/mcL (3.82-4.97); Red Cell Distribution Width 13.5 % (11.5-14.5); Segmented Neutrophils % 74.1 %; White Blood Count 20.7 K/mcL (4.3-11.1)
[2019-08-23] MEDS ORDERED: Epidural Premix (fent/bupiv) 110 ML EP ONE (01:19)
[2019-08-23] MEDS ORDERED: *HR* FentaNYL (PF) 100 MCG/2 ML VIAL ONE (01:20)
[2019-08-23] MEDS ORDERED: Ropivacaine/PF 0.2% 20 ML VIAL ONE (01:20)
[2019-08-23] MEDS ORDERED: EPHEDrine 50 MG/ML VIAL IVP PRN (01:50)
[2019-08-23] MEDS ORDERED: Epidural Premix (fent/bupiv) 110 ML EP SCH (02:00)
[2019-08-23] MEDS ORDERED: Lidocaine -MPF 2% 5 ML VIAL ONE (02:01)
[2019-08-23 02:53] LABS: Amphetamine Screen,Urine Negative ng/mL (Cutoff=1000); Barbiturate Screen,Urine Negative ng/mL (Cutoff=200); Benzodiazepines Screen,Urine Negative ng/mL (Cutoff=200); Cannabinoid Screen,Urine Negative ng/mL (Cutoff = 50); Cocaine Screen,Urine Negative ng/mL (Cutoff= 300); Opiate Screen,Urine Negative ng/mL (Cutoff=300); Phencyclidine Screen,Urine Negative ng/mL (Cutoff=25)
[2019-08-23] MEDS ORDERED: Oxytocin 20 units/ LR 1000 mL 20 UNIT/1,000 ML BAG IVC ONE ×2 (05:24→06:16)
[2019-08-23] MEDS ORDERED: Acetaminophen 325 MG TABLET PO PRN (06:16)
[2019-08-23] MEDS ORDERED: Oxytocin 20 units/ LR 1000 mL 20 UNIT/1,000 ML BAG IVC SCH (06:16)
[2019-08-23] MEDS ORDERED: Measles/Mumps/Rubella Vacc 0.5 ML VIAL SQ PRN (06:16)
[2019-08-23] MEDS ORDERED: Rho Immune Globulin 1,500 UNIT SYRINGE IM PRN (06:16)
[2019-08-23] MEDS: Ibuprofen 600 MG TABLET PO PRN ×3 (06:58→22:32)
[2019-08-23] MEDS: *HR* Buprenorphine HCl 8 MG TAB.SUBL SL SCH (14:06)
[2019-08-23] MEDS: Prenatal Vit/FA 1 EACH TABLET PO SCH (15:00)
[2019-08-24 06:28] LABS: Basophils # 0.1 K/mcL (0.0-0.2); Basophils % 0.5 %; Eosinophils # 1.2 K/mcL (0.0-0.6); Eosinophils % 6.1 %; Hematocrit 26.9 % (35.3-44.9); Lymphocytes # 5.1 K/mcL (0.6-4.6); Lymphocytes % 26.4 %; Mean Corpuscular HGB Conc 33.5 g/dL (31.6-35.5); Mean Corpuscular Hemoglobin 34.5 pg (28.0-33.3); Mean Corpuscular Volume 103.1 fL (83.0-100.0); Mean Platelet Volume 10.2 fL (9.4-12.4); Monocytes # 1.2 K/mcL (0.0-1.3); Monocytes % 6.4 %; Neutrophils # 11.4 K/mcL (1.6-8.9); Platelet Count 363 K/mcL (140-400); Red Blood Count 2.61 M/mcL (3.82-4.97); Red Cell Distribution Width 13.6 % (11.5-14.5); Segmented Neutrophils % 59.6 %; White Blood Count 19.2 K/mcL (4.3-11.1)
[2019-08-24] MEDS: Ibuprofen 600 MG TABLET PO PRN ×2 (08:18→15:43)
[2019-08-24] MEDS: *HR* Buprenorphine HCl 8 MG TAB.SUBL SL SCH (08:18)
[2019-08-24] MEDS: Prenatal Vit/FA 1 EACH TABLET PO SCH (08:23)
[2019-08-25 07:58] VITALS: BP 123/84
[2019-08-25] MEDS: *HR* Buprenorphine HCl 8 MG TAB.SUBL SL SCH (09:26)
[2019-08-25] MEDS: Prenatal Vit/FA 1 EACH TABLET PO SCH (09:26)
== END 2019-08-25 14:57 | disposition home or self-care (01) | DRG 560 ==
LOC: 1NENULAB 00:41 → 1NENUOBS 08:05
PROVIDERS: ADMIT Obstetrics & Gynecology; ATTEND Obstetrics & Gynecology

== ENCOUNTER 2020-04-11 20:59 | Inpatient (IN) ==
[2020-04-11 22:23] LABS: Basophils # 0.1 K/mcL (0.0-0.2); Basophils % 0.8 %; Eosinophils # 0.3 K/mcL (0.0-0.6); Eosinophils % 3.3 %; Hematocrit 43.9 % (35.3-44.9); Hemoglobin 14.3 g/dL (11.5-15.4); Immature Granulocytes % 0.2 % (0-4); Lymphocytes % 34.3 %; Mean Corpuscular HGB Conc 32.6 g/dL (31.6-35.5); Mean Corpuscular Hemoglobin 32.7 pg (28.0-33.3); Mean Corpuscular Volume 100.5 fL (83.0-100.0); Mean Platelet Volume 9.3 fL (9.4-12.4); Monocytes # 0.5 K/mcL (0.0-1.3); Monocytes % 5.3 %; Platelet Count 228 K/mcL (140-400); Red Blood Count 4.37 M/mcL (3.82-4.97); Red Cell Distribution Width 12.5 % (11.5-14.5); Segmented Neutrophils % 56.1 %; White Blood Count 8.9 K/mcL (4.3-11.1)
[2020-04-11 22:42] LABS: Acetaminophen 32 mcg/mL (10-20); BUN/Creatinine Ratio 11 (6-26); Blood Urea Nitrogen 8 mg/dL (6-20); Calcium 9.1 mg/dL (8.6-10.3); Carbon Dioxide 24 mEq/L (23-29); Chloride 110 mEq/L (98-107); Ethanol < 10 mg/dL (Less than 10); Glucose 118 mg/dL (70-105); Osmolality,Calculated 295 (280-300); Potassium 3.1 mEq/L (3.5-5.1); Salicylate 5.7 mg/dL (15.0-30.0); Sodium 143 mEq/L (136-145); eGFR For African Americans > 60 (> 60); eGFR For Non-African Americans > 60 (> 60)
[2020-04-11 22:43] LABS: Bilirubin,Urine Negative (Negative); Blood,Urine Negative (Negative); Clarity,Urine Clear (Clear); Color,Urine Yellow (Yellow); Glucose,Urine (UA) Normal (Normal); Ketones,Urine Negative (Negative); Leukocyte Esterase,Urine Negative (Negative); Nitrite,Urine Negative (Negative); Protein,Urine Trace mg/dL (Neg-Trace); Specific Gravity,Urine > 1.030 (1.010-1.025)
[2020-04-11 23:00] LABS: Amphetamine Screen,Urine Negative ng/mL (Cutoff=1000); Barbiturate Screen,Urine Negative ng/mL (Cutoff=200); Benzodiazepines Screen,Urine Negative ng/mL (Cutoff=200); Cannabinoid Screen,Urine Positive ng/mL (Cutoff = 50); Cocaine Screen,Urine Negative ng/mL (Cutoff= 300); Opiate Screen,Urine Negative ng/mL (Cutoff=300); Phencyclidine Screen,Urine Negative ng/mL (Cutoff=25)
[2020-04-12] MEDS ORDERED: haloperidoL 5 MG TABLET PO PRN (01:51)
[2020-04-12] MEDS ORDERED: hydrOXYzine pamoate 25 MG CAPSULE PO PRN (01:51)
[2020-04-12] MEDS ORDERED: *HR* LORazepam 2 MG/ML VIAL IM PRN (01:51)
[2020-04-12] MEDS ORDERED: QUEtiapine Fumarate 25 MG TABLET PO PRN (01:51)
[2020-04-12] MEDS ORDERED: *HR* LORazepam 1 MG TABLET PO PRN (01:51)
[2020-04-12] MEDS ORDERED: Haloperidol Lactate 5 MG/ML VIAL IM PRN (01:51)
[2020-04-12] MEDS ORDERED: Mag Hydrox/Al Hydrox/Simeth 30 ML UDC PO PRN (01:51)
[2020-04-12] MEDS: Nicotine 21 MG PATCH.TD24 TD SCH (11:26)
[2020-04-12] MEDS: *HR* Buprenorphine HCl 2 MG SUBLINGUAL TABLET SL SCH (16:42)
[2020-04-12] MEDS: clonazePAM 1 MG TABLET PO SCH (20:55)
[2020-04-12] MEDS ORDERED: OLANZapine 5 MG TAB.RAPDIS PO SCH (21:00)
[2020-04-13] MEDS: *HR* Buprenorphine HCl 2 MG SUBLINGUAL TABLET SL SCH (09:15)
[2020-04-13] MEDS: clonazePAM 1 MG TABLET PO SCH ×2 (09:15→20:53)
[2020-04-13] MEDS: Nicotine 21 MG PATCH.TD24 TD SCH (09:16)
[2020-04-13] MEDS: OLANZapine 10 MG TAB.RAPDIS PO SCH (20:53)
[2020-04-14] MEDS: clonazePAM 1 MG TABLET PO SCH ×2 (09:52→20:30)
[2020-04-14] MEDS: Nicotine 21 MG PATCH.TD24 TD SCH ×2 (09:52→16:21)
[2020-04-14] MEDS: *HR* Buprenorphine HCl 2 MG SUBLINGUAL TABLET SL SCH (09:52)
[2020-04-14] MEDS: OLANZapine 5 MG TAB.RAPDIS PO SCH (14:22)
[2020-04-14] MEDS: OLANZapine 10 MG TAB.RAPDIS PO SCH (20:30)
[2020-04-15] MEDS: Ibuprofen 400 MG TABLET PO PRN ×2 (03:51→22:39)
[2020-04-15] MEDS: *HR* Buprenorphine HCl 2 MG SUBLINGUAL TABLET SL SCH (09:43)
[2020-04-15] MEDS: Nicotine 21 MG PATCH.TD24 TD SCH (09:44)
[2020-04-15] MEDS: clonazePAM 1 MG TABLET PO SCH ×2 (09:44→21:21)
[2020-04-15] MEDS: OLANZapine 5 MG TAB.RAPDIS PO SCH (09:45)
[2020-04-15] MEDS: OLANZapine 10 MG TAB.RAPDIS PO SCH (21:20)
[2020-04-16] MEDS: clonazePAM 1 MG TABLET PO SCH ×2 (10:28→21:14)
[2020-04-16] MEDS: OLANZapine 10 MG TAB.RAPDIS PO SCH ×2 (10:29→21:14)
[2020-04-16] MEDS: *HR* Buprenorphine HCl 2 MG SUBLINGUAL TABLET SL SCH (10:31)
[2020-04-16] MEDS: Nicotine 21 MG PATCH.TD24 TD SCH (10:31)
[2020-04-16] MEDS: Ibuprofen 400 MG TABLET PO PRN (21:14)
[2020-04-17] MEDS: clonazePAM 1 MG TABLET PO SCH ×2 (08:34→21:22)
[2020-04-17] MEDS: Nicotine 21 MG PATCH.TD24 TD SCH (08:34)
[2020-04-17] MEDS: OLANZapine 10 MG TAB.RAPDIS PO SCH ×2 (08:35→21:23)
[2020-04-17] MEDS: *HR* Buprenorphine HCl 2 MG SUBLINGUAL TABLET SL SCH (08:35)
[2020-04-17] MEDS: Ibuprofen 400 MG TABLET PO PRN (15:28)
[2020-04-17] MEDS: MOM Conc 10 ML UD.LIQ PO PRN (17:24)
[2020-04-17] MEDS ORDERED: OLANZapine 5 MG TAB.RAPDIS PO SCH (18:00)
[2020-04-17] MEDS: OLANZapine 5 MG TAB.RAPDIS PO SCH (21:25)
[2020-04-18] MEDS ORDERED: OLANZapine 5 MG TAB.RAPDIS PO SCH (09:00)
[2020-04-18] MEDS: *HR* Buprenorphine HCl 2 MG SUBLINGUAL TABLET SL SCH (09:24)
[2020-04-18] MEDS: OLANZapine 5 MG TAB.RAPDIS PO SCH ×2 (09:24→21:34)
[2020-04-18] MEDS: clonazePAM 1 MG TABLET PO SCH ×2 (09:25→21:34)
[2020-04-18] MEDS: Nicotine 21 MG PATCH.TD24 TD SCH (09:25)
[2020-04-18] MEDS: OLANZapine 10 MG TAB.RAPDIS PO SCH (21:34)
[2020-04-19] MEDS: *HR* Buprenorphine HCl 2 MG SUBLINGUAL TABLET SL SCH (08:55)
[2020-04-19] MEDS: OLANZapine 5 MG TAB.RAPDIS PO SCH ×2 (08:55→21:36)
[2020-04-19] MEDS: Nicotine 21 MG PATCH.TD24 TD SCH (08:57)
[2020-04-19] MEDS: clonazePAM 1 MG TABLET PO SCH (08:58)
[2020-04-19] MEDS ORDERED: clonazePAM 1 MG TABLET PO PRN (15:06)
[2020-04-19] MEDS: Ibuprofen 400 MG TABLET PO PRN (15:48)
[2020-04-19] MEDS ORDERED: OLANZapine 5 MG TAB.RAPDIS PO SCH (21:00)
[2020-04-20] MEDS: Ibuprofen 400 MG TABLET PO PRN ×2 (06:42→18:32)
[2020-04-20] MEDS: Nicotine 21 MG PATCH.TD24 TD SCH (08:33)
[2020-04-20] MEDS: *HR* Buprenorphine HCl 2 MG SUBLINGUAL TABLET SL SCH (08:34)
[2020-04-20] MEDS: OLANZapine 5 MG TAB.RAPDIS PO SCH ×2 (08:34→21:12)
[2020-04-21] MEDS: Nicotine 21 MG PATCH.TD24 TD SCH (09:09)
[2020-04-21] MEDS: *HR* Buprenorphine HCl 2 MG SUBLINGUAL TABLET SL SCH (09:10)
[2020-04-21] MEDS: OLANZapine 5 MG TAB.RAPDIS PO SCH ×2 (09:10→20:40)
[2020-04-21] MEDS ORDERED: Lurasidone 20 MG TABLET PO SCH (11:00)
[2020-04-21] MEDS: Ibuprofen 400 MG TABLET PO PRN ×2 (11:20→18:19)
[2020-04-21] MEDS: MOM Conc 10 ML UD.LIQ PO PRN (19:10)
[2020-04-22] MEDS: OLANZapine 5 MG TAB.RAPDIS PO SCH ×2 (09:09→21:22)
[2020-04-22] MEDS: Nicotine 21 MG PATCH.TD24 TD SCH (09:09)
[2020-04-22] MEDS: *HR* Buprenorphine HCl 2 MG SUBLINGUAL TABLET SL SCH (09:09)
[2020-04-22] MEDS: Ibuprofen 400 MG TABLET PO PRN (15:27)
[2020-04-22] MEDS ORDERED: Lurasidone 20 MG TABLET PO SCH (17:00)
[2020-04-23] MEDS: Nicotine 21 MG PATCH.TD24 TD SCH (08:35)
[2020-04-23] MEDS: OLANZapine 5 MG TAB.RAPDIS PO SCH ×2 (08:36→21:19)
[2020-04-23] MEDS: *HR* Buprenorphine HCl 2 MG SUBLINGUAL TABLET SL SCH (08:36)
[2020-04-23] MEDS: Ibuprofen 400 MG TABLET PO PRN (09:46)
[2020-04-23] MEDS: clonazePAM 0.5 MG TABLET PO PRN (21:19)
[2020-04-24 07:25] LABS: Basophils # 0.1 K/mcL (0.0-0.2); Basophils % 0.8 %; Eosinophils # 0.5 K/mcL (0.0-0.6); Eosinophils % 6.9 %; Hematocrit 39.1 % (35.3-44.9); Hemoglobin 12.5 g/dL (11.5-15.4); Lymphocytes # 2.2 K/mcL (0.6-4.6); Lymphocytes % 30.9 %; Mean Corpuscular Volume 103.2 fL (83.0-100.0); Mean Platelet Volume 9.1 fL (9.4-12.4); Monocytes # 0.7 K/mcL (0.0-1.3); Monocytes % 9.6 %; Neutrophils # 3.6 K/mcL (1.6-8.9); Platelet Count 241 K/mcL (140-400); Red Blood Count 3.79 M/mcL (3.82-4.97); Red Cell Distribution Width 12.6 % (11.5-14.5); Segmented Neutrophils % 50.8 %; White Blood Count 7.1 K/mcL (4.3-11.1)
[2020-04-24 07:48] LABS: Alanine Aminotransferase 155 Units/L (7-52); Albumin 3.6 g/dL (3.5-5.7); Albumin/Globulin Ratio 1.4 (1.1-2.2); Alkaline Phosphatase 99 Units/L (34-104); Aspartate Amino Transferase 38 Units/L (13-39); BUN/Creatinine Ratio 6 (6-26); Bilirubin,Total 0.2 mg/dL (0.3-1.0); Blood Urea Nitrogen 4 mg/dL (6-20); Calcium 8.7 mg/dL (8.6-10.3); Carbon Dioxide 29 mEq/L (23-29); Chloride 103 mEq/L (98-107); Chol/HDL Ratio 5.5 (0-4.9); Cholesterol 236 mg/dL (< 200); Globulin 2.5 g/dL (2.4-3.5); Glucose 80 mg/dL (70-105); HDL Cholesterol 43 mg/dL (40-59); LDL Cholesterol,Calculated 148 mg/dL (< 100); Osmolality,Calculated 286 (280-300); Potassium 4.3 mEq/L (3.5-5.1); Sodium 140 mEq/L (136-145); Total Protein 6.1 g/dL (6.4-8.9); Triglycerides 223 mg/dL (< 150); eGFR For African Americans > 60 (> 60); eGFR For Non-African Americans > 60 (> 60)
[2020-04-24 08:00] LABS: Thyroid Stimulating Hormone 3.644 mcIU/mL (0.340-5.600)
[2020-04-24] MEDS: *HR* Buprenorphine HCl 2 MG SUBLINGUAL TABLET SL SCH (08:34)
[2020-04-24] MEDS: OLANZapine 5 MG TAB.RAPDIS PO SCH ×2 (08:34→20:11)
[2020-04-24] MEDS: Nicotine 21 MG PATCH.TD24 TD SCH (08:35)
[2020-04-24] MEDS: Ibuprofen 400 MG TABLET PO PRN ×2 (08:37→14:37)
[2020-04-24 09:24] LABS: Estimated Average Glucose 126 mg/dl
[2020-04-24] MEDS ORDERED: Lurasidone 20 MG TABLET PO SCH (17:00)
[2020-04-24] MEDS: clonazePAM 0.5 MG TABLET PO PRN (20:10)
[2020-04-24] MEDS: MOM Conc 10 ML UD.LIQ PO PRN (23:15)
[2020-04-25] MEDS: Nicotine 21 MG PATCH.TD24 TD SCH (08:38)
[2020-04-25] MEDS: *HR* Buprenorphine HCl 2 MG SUBLINGUAL TABLET SL SCH (08:38)
[2020-04-25 08:43] VITALS: BP 91/57
[2020-04-25] MEDS: Ibuprofen 400 MG TABLET PO PRN (09:24)
== END 2020-04-25 12:40 | disposition home or self-care (01) | DRG 753 ==
LOC: EMEROOARM 20:59 → SUATTDRO 04-12 01:48 → 1ANU 04-12 01:48
PROVIDERS: ADMIT Psychiatry & Neurology Psychiatry; ATTEND Psychiatry & Neurology Psychiatry